=== PATIENT | female | born 1970 | race Caucasian/White ===

== ENCOUNTER 2018-01-13 15:59 | Emergency (ER) | payer OTHER, MEDICARE, SELFPAY ==
[2018-01-13 16:04] VITALS: BP 144/88; PULSE 85; RESP 15; TEMP 36.6; O2SAT 98; BMI 30.1
--- NOTE | 2018-01-13 16:41 | ED_ITS ---
HPI - Headache <DO Diego Davis Last Filed: 01/15/18 13:34> General Chief Complaint: Headache Stated Complaint: CANCER PATIENT,SEVERE HEADACHES,VOMITING Time Seen by Provider: 01/13/18 16:22 Source: patient Mode of arrival: ambulatory Limitations: no limitations History of Present Illness HPI Narrative: Patient is a 47-year-old female who presents with severe headache. She is a known breast cancer patient with metastasis to her lungs spine and brain. She had a headache yesterday which resolved easily with Tylenol. However today she wakes up and says is much worse she is nauseous, she overall feels weak and tired but no localized weakness. No visual changes. She was supposed to get an MRI this 2 week but was currently on vacation on [facility]. They live down in [facility]. MD Complaint: headache Related Data Allergies Allergy/AdvReac Type Severity Reaction Status Date / Time ibuprofen AdvReac Verified 01/13/18 16:04 Review of Systems <DO Diego Davis Last Filed: 01/15/18 13:34> Review of Systems All systems reviewed & are unremarkable except as noted in HPI and below Constitutional Denies chills, Denies fever(s), Reports headache(s), Denies lethargy and Denies weakness ENT Ears, Nose, Mouth, and Throat: Reports headache(s) Cardiovascular Denies chest pain, Denies irregular heart rhythm, Denies lightheadedness, Denies palpitations and Denies orthopnea Musculoskeletal Denies back pain, Denies muscle weakness, Denies numbness and Denies tingling Neurologic Reports as per HPI, Reports headache(s), Denies numbness, Denies tingling and Denies weakness Endocrine Denies palpitations Hematologic/Lymphatic Reports as per HPI Exam <DO Diego Davis Last Filed: 01/15/18 13:34> Initial Vital Signs Initial Vital Signs: Vital Signs Temperature 97.8 F 01/13/18 16:04 Pulse Rate 85 01/13/18 16:04 Respiratory Rate 15 01/13/18 16:04 Blood Pressure 144/88 H 01/13/18 16:04 Pulse Oximetry 98 01/13/18 16:04 Const General: cooperative and healthy appearing Nutritional Appearance: average body habitus Orientation: alert, awake and oriented x3 HENMT Head: normal to inspection, normocephalic and atraumatic Face and sinus: normal facial exam and face symmetric Eyes Eyelids: eyelids normal Pupils: PERRL EOM: EOM intact bilaterally Neck Neck: normal visual inspection, full ROM and no meningeal signs Chest Chest: normal inspection of the chest Other: port right side Resp Effort & Inspection: normal respiratory effort, able to speak in complete sentences and no respiratory distress Auscultation: clear to auscultation bilaterally Cardio Rate: regular rate Rhythm: regular rhythm Heart Sounds: no click, no gallops, no murmurs and no rubs Pulses: normal peripheral pulses GI Inspection: normal to inspection Palpation: soft, No mass and No tender Skin General: no rashes or lesions noted, No jaundice and No petechiae Neuro General: alert, awake and oriented x3 Motor: muscle tone normal throughout and strength 5/5 throughout Sensory Exam: no sensory deficits noted Coordination: [id number] test normal and [id number] test normal <Gurjit Green MD - Last Filed: 01/30/18 09:39> Initial Vital Signs Initial Vital Signs: Vital Signs Temperature 97.8 F 01/13/18 16:04 Pulse Rate 85 01/13/18 16:04 Respiratory Rate 15 01/13/18 16:04 Blood Pressure 144/88 H 01/13/18 16:04 Pulse Oximetry 98 01/13/18 16:04 Course <Shelli Benavides DO - Last Filed: 01/15/18 13:34> Orders Ordered: Discontinued Medications Dexamethasone (Decadron) 10 mg IV NOW ONE Stop: 01/13/18 19:03 Last Admin: 01/13/18 19:41 Dose: 10 mg Sodium Chloride (Normal Saline 0.9%) 1,000 mls @ 1,000 mls/hr IV BOLUS ONE Stop: 01/13/18 17:40 Last Infusion: 01/13/18 18:44 Dose: 0 mls/hr Admin: 01/13/18 17:23 Dose: 1,000 mls/hr Lidocaine HCl 6.7 ml/ Sodium (Chloride) 56.7 mls @ 340.2 mls/hr IV NOW ONE Stop: 01/13/18 18:21 Last Infusion: 01/13/18 18:51 Dose: 0 mls/hr Admin: 01/13/18 18:40 Dose: 340.2 mls/hr Ketamine HCl (Ketalar) 10 mg IV NOW ONE Stop: 01/13/18 19:03 Last Admin: 01/13/18 19:41 Dose: 10 mg Ondansetron HCl (Zofran) 4 mg IV NOW ONE Stop: 01/13/18 16:42 Last Admin: 01/13/18 17:23 Dose: 4 mg Vital Signs - 8 hr 01/13/18 16:04 01/13/18 17:38 01/13/18 18:30 Temperature 97.8 F Pulse Rate 85 81 87 Respiratory Rate 15 Blood Pressure 144/88 H Blood Pressure [Left Arm] 133/80 H 125/83 H Pulse Oximetry 98 93 93 <Gurjit Green MD - Last Filed: 01/30/18 09:39> Orders Ordered: Discontinued Medications Dexamethasone (Decadron) 10 mg IV NOW ONE Stop: 01/13/18 19:03 Last Admin: 01/13/18 19:41 Dose: 10 mg Sodium Chloride (Normal Saline 0.9%) 1,000 mls @ 1,000 mls/hr IV BOLUS ONE Stop: 01/13/18 17:40 Last Infusion: 01/13/18 18:44 Dose: 0 mls/hr Admin: 01/13/18 17:23 Dose: 1,000 mls/hr Lidocaine HCl 6.7 ml/ Sodium (Chloride) 56.7 mls @ 340.2 mls/hr IV NOW ONE Stop: 01/13/18 18:21 Last Infusion: 01/13/18 18:51 Dose: 0 mls/hr Admin: 01/13/18 18:40 Dose: 340.2 mls/hr Ketamine HCl (Ketalar) 10 mg IV NOW ONE Stop: 01/13/18 19:03 Last Admin: 01/13/18 19:41 Dose: 10 mg Ondansetron HCl (Zofran) 4 mg IV NOW ONE Stop: 01/13/18 16:42 Last Admin: 01/13/18 17:23 Dose: 4 mg Vital Signs - 8 hr 01/13/18 16:04 01/13/18 17:38 01/13/18 18:30 Temperature 97.8 F Pulse Rate 85 81 87 Respiratory Rate 15 Blood Pressure 144/88 H Blood Pressure [Left Arm] 133/80 H 125/83 H Pulse Oximetry 98 93 93 MDM - Headache <Shelli Benavides, DO - Last Filed: 01/15/18 13:34> Lab Data Attestation: I reviewed the patient's lab results. Result diagrams: 01/13/18 17:17 01/13/18 17:17 Lab Results 01/13/18 01/13/18 Range/Units 17:17 17:17 WBC 4.8 (4.5-11.0) X10^3/uL RBC 4.45 (4.0-5.2) X10^6/uL Hgb 13.1 (12.0-16.0) g/dL Hct 38.9 (36-46) % MCV 87.3 (80-100) fL MCH 29.4 (26-34) PG MCHC 33.7 (30-36) % RDW 16.3 H (11.6-14.8) % Plt Count 126 L (150-400) X10^3/uL Neut % (Auto) 79.4 H (50-75) % Lymph % (Auto) 12.6 L (25-40) % [place] % (Auto) 7.0 (3-14) % Eos % (Auto) 0.4 L (2-4) % Baso % (Auto) 0.6 (0-2) % Neut # (Auto) 3800 (7971-4565) /uL Sodium 140 (137-145) mmol/L Potassium 3.7 (3.4-5.1) mmol/L Chloride 103 (98-107) mmol/L Carbon Dioxide 28 (22-32) mmol/L BUN 12 (7-17) mg/dL Creatinine 0.60 (0.52-1.04) mg/dL Estimated GFR > 60.0 (>60) mL/min BUN/Creatinine Ratio 20.0 (6-22) Glucose 113 H (70-100) mg/dL Calcium 9.0 (8.4-10.2) mg/dL Imaging Data CT scan - head: Radiologist's impression: PROCEDURE: CT HEAD/BRAIN WO CON INDICATIONS: severe headache known breast CA with mets TECHNIQUE: Noncontrast 4.5 mm thick angled axial sections acquired from the foramen magnum to the vertex, with coronal and sagittal reformats. For radiation dose reduction, the following was used: automated exposure control, adjustment of mA and/or kV according to patient size. COMPARISON: None. FINDINGS: Image quality: Excellent. CSF spaces: Basal cisterns are patent. No extra-axial fluid collections. Ventricles are normal in size and shape. Brain: There is hypodensity in cerebellar hemispheres bilaterally, suspicious for vasogenic edema. No midline shift. No intracranial masses or hemorrhage. Stone- white matter interface is normal. Skull and face: Calvarium and visualized facial bones are intact, without suspicious lesions. Sinuses: Visualized sinuses and mastoids are clear. IMPRESSION: Hypodensity in the cerebellar hemispheres bilaterally consistent with vasogenic edema. In this patient is breast cancer with known intracranial metastasis, this finding is highly suspicious for metastases disease. Comparison to prior examinations, if available, would be helpful. If clinically indicated, repeat contrast enhanced MRI may be obtained. The result was discussed with Dr. Benavides in ER prior to dictation. Dictated by: Janay Cardona M.D. on 01/13/2018 at 16:58 <Gurjit Green MD - Last Filed: 01/30/18 09:39> Lab Data Lab Results 01/13/18 01/13/18 Range/Units 17:17 17:17 WBC 4.8 (4.5-11.0) X10^3/uL RBC 4.45 (4.0-5.2) X10^6/uL Hgb 13.1 (12.0-16.0) g/dL Hct 38.9 (36-46) % MCV 87.3 (80-100) fL MCH 29.4 (26-34) PG MCHC 33.7 (30-36) % RDW 16.3 H (11.6-14.8) % Plt Count 126 L (150-400) X10^3/uL Neut % (Auto) 79.4 H (50-75) % Lymph % (Auto) 12.6 L (25-40) % [place] % (Auto) 7.0 (3-14) % Eos % (Auto) 0.4 L (2-4) % Baso % (Auto) 0.6 (0-2) % Neut # (Auto) 3800 (5678-2202) /uL Sodium 140 (137-145) mmol/L Potassium 3.7 (3.4-5.1) mmol/L Chloride 103 (98-107) mmol/L Carbon Dioxide 28 (22-32) mmol/L BUN 12 (7-17) mg/dL Creatinine 0.60 (0.52-1.04) mg/dL Estimated GFR > 60.0 (>60) mL/min BUN/Creatinine Ratio 20.0 (6-22) Glucose 113 H (70-100) mg/dL Calcium 9.0 (8.4-10.2) mg/dL Discharge Plan Departure Patient Disposition: Home, Self-Care Clinical Impression: Headache Discharge Date/Time: 01/13/18 20:13 Interventions: ED Discharge Assessment Last Done: 01/13/18 20:12 Activity Restrictions/Additional Instructions: Headache You were seen in the emergency department for evaluation and treatment of a headache. There are many causes for headaches. Most are painful but do not threaten your health. However there are some types of headaches that can be life threatening. Please return to the emergency department if you develop any of the following: * Your headache worsens, becomes severe, or you have nausea or vomiting. * Fever greater than 100.5 degrees Fahrenheit. * You have neck stiffness. * Changes in vision or hearing. * You have new weakness, numbness, or decreased sensation. * You have dizziness or difficulty walking * You feel faint or like you will pass out. Please follow up with your primary care doctor if your symptoms continue or do not improve. If you have recurrent headaches, your primary care physician may be able to prescribe medications that abort headaches or refer you to a neurologist for further evaluation and work up of your headaches. Home care instructions: * Keep all follow-up appointments with your caregiver or any specialist referral. * Lie down in a dark, quiet room when you have a headache. Keep a headache journal to find out what may trigger your migraine headaches. For example, write down: * What you eat and drink. * How much sleep you get. * Any change to your diet or medicines. * Try massage or other relaxation techniques. * Put ice packs or heat on the head and neck. Use these 3 to 4 times per day for 15 to 20 minutes each time, or as needed. * Limit stress. * Sit up straight, and do not tense your muscles. * Quit smoking if you smoke. * Limit alcohol use. * Decrease the amount of caffeine you drink, or stop drinking caffeine. * Eat and sleep on a regular schedule. * Get 7 to 9 hours of sleep, or as recommended by your caregiver. * Keep lights dim if bright lights bother you and make your headaches worse. Acetaminophen (Tylenol) * Please take 1,000 mg every 6 hours as needed for pain. * Do no use with alcohol or other acetaminophen containing medications. SIDE EFFECTS: This drug usually has no side effects. If you do not have liver problems, the maximum dose of acetaminophen for adults is 4 grams per day (4000 milligrams). Taking more than the maximum daily amount may cause serious ( possibly fatal) liver damage. Get medical help right away if you have any of the following symptoms of liver damage: persistent nausea/vomiting, extreme tiredness, stomach/abdominal pain, yellowing eyes/skin, dark urine. If you have liver problems, consult your doctor or pharmacist for a safe dosage of this medication. A very serious allergic reaction to this drug is rare. However, get medical help right away if you notice any symptoms of a serious allergic reaction, including: rash, itching/swelling (especially of the face/tongue/ throat), severe dizziness, trouble breathing. This is not a complete list of possible side effects. If you notice other effects not listed above, contact your doctor or pharmacist. ED Cosign/Signout <Shelli Benavides DO - Last Filed: 01/15/18 13:34> Sign Out Provider Sign Out Attestation: Patient signed out to Dr. Green, no acute finding, pain control likely DC with follow up in [place]. <Gurjit Green MD - Last Filed: 01/30/18 09:39> Cosign ED Attending Cosignature Attestation: Sign Out Provider Sign Out Attestation: Patient resting comfortably. Patient with near complete resolution of headache with prior interventions. Repeat evaluation, patient without complaints, comfortable with discharge home, will follow up with oncologist tomorrow. Returning to [place] tonight.
[2018-01-13] MEDS: SODIUM CHLORIDE 0.9% 1,000 ML 1000 ML IV (17:23)
[2018-01-13] MEDS: ONDANSETRON 4 MG/2 ML INJ IV (17:23)
[2018-01-13 17:33] LABS: Add Manual Diff / Slide Review NO; Basophils Percent Auto 0.6 % (0-2); Eosinophils Percent Auto 0.4 % (2-4); Hematocrit 38.9 % (36-46); Hemoglobin 13.1 g/dL (12.0-16.0); Lymphocytes Percent Auto 12.6 % (25-40); Mean Corpuscular HGB Conc 33.7 % (30-36); Mean Corpuscular Hemoglobin 29.4 PG (26-34); Mean Corpuscular Volume 87.3 fL (80-100); Neutrophils Absolute Auto 3800 /uL (3000-5900); Neutrophils Percent Auto 79.4 % (50-75); Platelet Count 126 X10^3/uL (150-400); Red Blood Cell Count 4.45 X10^6/uL (4.0-5.2); Red Cell Distribution Width 16.3 % (11.6-14.8); White Blood Cell Count 4.8 X10^3/uL (4.5-11.0)
[2018-01-13 17:37] LABS: Blood Urea Nitrogen 12 mg/dL (7-17); Carbon Dioxide 28 mmol/L (22-32); Chloride 103 mmol/L (98-107); Estimated Glomerular Filt Rate > 60.0 mL/min (>60); Glucose 113 mg/dL (70-100); HEMOLYSIS < 15 (0-50); Potassium 3.7 mmol/L (3.4-5.1); Sodium 140 mmol/L (137-145)
[2018-01-13 17:38] VITALS: BP 133/80; PULSE 81; O2SAT 93
--- NOTE | 2018-01-13 17:52 | PC.NURSE ---
Pt diagnosed with breast cancer 9 years ago. Per pt, it has metastasized to lungs, spine and now the base of her brain. She began to experience a migraine today while camping and came to the ED for treatment.
[2018-01-13 18:30] VITALS: BP 125/83; PULSE 87; O2SAT 93
[2018-01-13] MEDS: SODIUM CHLORIDE 0.9% IV (18:40)
[2018-01-13] MEDS: LIDOCAINE 2% IV (18:40)
[2018-01-13] MEDS: DEXAMETHASONE 10 MG/ML VIAL IV (19:41)
[2018-01-13] MEDS: KETAMINE 500 MG/10 ML INJ 10 MG IV (19:41)
[2018-01-13 20:12] VITALS: BP 133/89; PULSE 88; O2SAT 96
== END 2018-01-13 20:13 | disposition home or self-care (01) ==
PROVIDERS: Emergency Provider Emergency Medicine
DX: R51 Headache (principal)
CPT/HCPCS: 36591; 70450; 80048; 85025; 96361; 96374; 96375; 99283; 99284; J1100; J2405